=== PATIENT | female | born 1940 | race Caucasian/White ===

== ENCOUNTER 2022-04-26 15:25 | Emergency (ER) | payer MEDICARE, OTHER ==
[~2022-04-26 15:25] MED LIST: MOTRIN600 MG PO
[2022-04-26] MEDS ORDERED: TRAMADOL HCL50 MG PO (16:28)
[2022-04-26] MEDS ORDERED: CEPHALEXIN500 MG PO (16:28)
[2022-04-26] MEDS ORDERED: VIBRAMYCIN100 MG PO (16:28)
== END 2022-04-26 16:34 | disposition home or self-care (01) ==
LOC: FER 15:25
DX: L02.214 Cutaneous abscess of groin (principal); E11.9 Type 2 diabetes mellitus without complications
CPT/HCPCS: 99283